=== PATIENT | male | born 1980 | race Hispanic/Latino ===

== ENCOUNTER 2023-06-29 19:49 | Emergency (ER) | payer OTHER ==
[2023-06-29] MEDS ORDERED: Lidocaine 1% PF 5 ML VIAL ONE (20:17)
[2023-06-29] MEDS ORDERED: Boostrix 0.5 ML (Tdap) VIAL (>/=7 yrs of age) ONE (20:50)
== END 2023-06-29 21:29 | disposition home or self-care (01) ==
LOC: ERS 19:49
DX: S61.211A Laceration without foreign body of left index finger without damage to nail, initial encounter (principal); W26.8XXA Contact with other sharp object(s), not elsewhere classified, initial encounter; Z23 Encounter for immunization
CPT/HCPCS: 12001; 90471; 90715

== ENCOUNTER 2023-07-07 17:54 | Emergency (ER) | payer OTHER | END 2023-07-07 18:27 | disposition home or self-care (01) | LOC: ERS 17:54 | DX: S61.211D Laceration without foreign body of left index finger without damage to nail, subsequent encounter (principal) ==